=== PATIENT | male | born 1940 | race Caucasian/White ===

== ENCOUNTER 2022-05-26 09:04 | Emergency (ER) | payer MEDICARE, OTHER ==
[2022-05-26] VITALS (30 sets, daily range): BP systolic 129–194; BP diastolic 75–114
[~2022-05-26] VITALS: Ht 182.9 cm; Wt 81.8 kg
[~2022-05-26 09:04] MED LIST: CLOPIDOGREL75 MG PO; CRESTOR40 MG PO; HYDROCHLOROT12.5 MG PO; LOPRESSOR 550 MG/TAB PO; LOSARTAN POT50 MG PO; PERCOCET 5/325M1 TAB PO; SLO-NIACIN500 MG PO; [UNRECOGNIZED DRUG - OTHER] PO
[2022-05-26 10:28] LABS: HEMATOCRIT 40.7 % (39.0-50.0); HEMOGLOBIN 13.8 g/dl (14.0-18.0); IMMATURE GRANULOCYTES 0.4 % (0.0-5.0); MEAN CELL VOLUME 94.7 fL CALC (80.0-100.0); MEAN CORPUSCULAR HGB 32.1 pG CALC (26.0-32.0); MEAN CORPUSCULAR HGB CONC 33.9 g/dL CAL (32.0-36.0); NEUT# 5.15 thou/uL (1.82-7.42); RED BLOOD COUNT 4.3 mill/uL (4.70-6.10); RED CELL DISTRI WIDTH 12.9 % (11.5-15.5)
[2022-05-26 10:47] LABS: ALBUMIN 4.1 g/dL (3.2-5.0); ALKALINE PHOSPHATASE 81 u/l (38-126); ANION GAP 12 (6-22 (CALC)); BILIRUBIN, TOTAL 1.3 mg/dL (0.0-1.4); BUN 22 mg/dL (8-23); BUN/CREATININE RATIO 20 (12-20 (CALC)); CARBON DIOXIDE 24 mmol/l (22-30); CHLORIDE 107 mmol/l (95-108); CREATININE 1.1 mg/dL (0.7-1.3); GFR FOR AFR.AMER. > 60 ML/MIN (>=60 (CALC)); GFR OTHER RACES > 60 ML/MIN (>=60 (CALC)); POTASSIUM 4.1 mmol/l (3.5-5.1); SGOT/AST 38 u/l (19-48); SODIUM 139 mmol/l (137-146); TOTAL PROTEIN 7.2 g/dL (6.3-8.2)
[2022-06-02] MEDS ORDERED: ATORVASTATIN CA80 MG PO ×2 (15:54→16:04)
[2022-06-02] MEDS ORDERED: HYDROCHLOROT12.5 M1 PO ×2 (15:55→16:04)
[2022-06-02] MEDS ORDERED: LOSARTAN POTASS50 MG PO (16:04)
[2022-06-02] MEDS ORDERED: LOPRESSOR 550 MG/TAB PO (16:04)
== END 2022-05-26 17:37 | disposition short-term general hospital (02) ==
LOC: ED 09:04
PROVIDERS: Family Medicine
PROC: 0HQ1XZZ Repair Face Skin, External Approach (ICD-10-PCS; principal; 2022-05-26)
DX: S12.190A Other displaced fracture of second cervical vertebra, initial encounter for closed fracture (principal); S01.81XA Laceration without foreign body of other part of head, initial encounter; I10 Essential (primary) hypertension; F17.200 Nicotine dependence, unspecified, uncomplicated; W18.39XA Other fall on same level, initial encounter; Y92.009 Unspecified place in unspecified non-institutional (private) residence as the place of occurrence of the external cause